=== PATIENT | male | born 1985 | race Asian ===

== ENCOUNTER 2024-02-25 23:33 | Emergency (ER) | payer OTHER, SELFPAY ==
[2024-02-25 23:54] VITALS: BP 154/101
--- NOTE | 2024-02-26 01:34 | ED.GENMED ---
History of Present Illness
General
Chief Complaint: Skin Problem
Source: patient
Exam Limitations: none
Time Seen by Provider: 02/26/24 01:26
History of Present Illness
History of Present Illness:
See MDM
Past History
Past History
ED Past Medical History: Other (eczema)
ED Past Surgical History: Orthopedic
Social History
Tobacco: Vaping
Alcohol: None
Drug: None
Living: with family
Family History
Family History: Other (Noncontributory)
Phy Exam
Physical Exam
Physical Exam:
See MDM
Course
Orders/Labs/Results
Orders:
Orders
02/26/24 01:47
Clindamycin HCl [Cleocin] 300 mg PO NOW STA
02/26/24 01:48
Wound Culture [Wound/Abscess/Other Culture] Urgent
DANYELLE Source: Abscess
Specimen Description:
Comment: Right buttock
Vital Signs
Initial and Last Documented VS:
Initial Vital Signs
Temp Pulse Resp BP Pulse Ox
98.3 F 87 16 154/101 97
02/25/24 23:54 02/25/24 23:54 02/25/24 23:54 02/25/24 23:54 02/25/24 23:54
Last Documented Vital Signs
Temp Pulse Resp BP Pulse Ox
98.3 F 87 16 154/101 97
02/25/24 23:54 02/25/24 23:54 02/25/24 23:54 02/25/24 23:54 02/25/24 23:54
Procedures
Incision/Drainage/Joint Aspiration
Left Posterior Buttock:
Anethesia: 1% Lidocaine with Epi
Preparation: cleaned with alcohol wipe
Type of procedure: incise and drain
Nature of site: abscess
Description of abscess: greater than 3cm
Loculations broken up: Yes
How much fluid was obtained?: small amount
Fluid description: purulent
Treatment: left open for drainage
MDM/Problems Addressed
Differential Diagnosis Includes:
HPI and MDM Narrative:
38-year-old male presenting with recurrent abscess of his right buttock. He states he had something like this in the past that required drainage. He denies any trauma or fevers.
On exam patient does have a fluctuant area to his right buttock. This is overlying the scar tissue from prior incision
Physical exam
General: Well appearing and non-toxic
HEENT: protecting airway
Neck: appears supple
CV: No evidence of cyanosis
Resp: No accessory muscle use
Abd: Non-distended
Extremities: No deformities
Neuro: alert
Psych: Normal affect
Skin: Right buttock abscess
Problems Addressed including Acute and Chronic Conditions affecting care:
1. Right buttock abscess
Acuity: acute
Prognosis: stable
Details: Patient tolerated I&D.
Updates
Abscess is more consistent with infected sebaceous cyst. Wound culture sent. Will start clindamycin given the Bactrim allergy. Discussed follow-up with surgery
Differential Diagnosis (but not limited to): Abscess, sebaceous cyst
Testing considered: Blood work
Drug therapy (if applicable): OTC meds, please see d/c instruction regarding Rx drugs
Amount and/or Complexity of Data Reviewed
Clinical info obtained from: Patient
External data reviewed: N/A
Labs I independently reviewed (but not limited to): N/A
Radiology: N/A
Pulse Ox: not hypoxic
EKG independently reviewed: N/A
Ceramic Designer: N/A
Critical Care: N/A
Risk of Complication:
Social Determinants of health: Good social support
Discussed with other providers: N/A
Escalation of Care includes Admit/Obs: After being observed in the Emergency Department, pt stable for discharge.
Occasional wrong word or 'sound a like' substitutions may have occurred due to the inherent limitations of voice recognition software. Read the chart carefully and recognize, using context, where substitutions have occurred.
*Critical Care Note
Total Time (30-74mins, 75-104mins- exclusive of procedures): Not Applicable
ED Attending Note
-
Portions of this chart may have been created with voice recognition software.� Occasional wrong word or��sound alike� substitutions may have occurred due to the inherent limitations of voice recognition software.
Discharge Plan
Departure
Patient Disposition: Home (Routine Discharge)
Date of Disposition: 02/26/24
Time of Disposition: 01:51
Patient with high blood pressure during this ER visit?: Yes
Discharge Problem:
Infected sebaceous cyst
Instructions: Skin Abscess
Prescriptions:
New
clindamycin HCl 300 mg capsule
300 mg PO TID 10 Days Qty: 30 0RF
No Action
cephalexin 500 mg capsule
500 mg PO TID Qty: 30 0RF
Referrals:
Amanuel Muller MD [Active] -
Activity Restrictions/Additional Instructions:
Please return for any worsening symptoms.
You may return at any time if you have further concerns.
Please follow up with your doctor at the first available appointment, preferably this week.
Please make an appointment to see the general surgeon at some point to discuss complete removal of the sebaceous cyst
Thank you for choosing [facility].
Interventions
Interventions:
*Risk Screen - Suicide Last Done: 02/25/24 23:54
*General Assessment Last Done: 02/25/24 23:54
*Neglect/Abuse Screening Last Done: 02/25/24 23:54
Discharge Date and Time
Print Language: TONGAN
[2024-02-26] MEDS: CLEOCIN 300 MG PO (02:04)
== END 2024-02-26 02:28 | disposition home or self-care (01) ==
LOC: EMR 23:33
PROVIDERS: EMERGENCY PHYSICIAN Student in an Organized Health Care Education/Training Program
DX: L08.9 Local infection of the skin and subcutaneous tissue, unspecified (principal); L72.3 Sebaceous cyst; F17.290 Nicotine dependence, other tobacco product, uncomplicated
CPT/HCPCS: 99282; 10060; 87070; 87147; 87205